=== PATIENT | female | born 1940 | race Caucasian/White ===

== ENCOUNTER → 2016-10-22 | Outpatient (CLI) | payer MEDICARE ==
[~2016-10-22] MED LIST: AMLODIPINE BESY10 MG PO; APRESOLINE PO; ASPIRIN ENTERI325 M1 PO; ASPIRIN PO; ASPIRIN81 MG PO; AVALIDE 300-12.1 TAB PO; AVANDIA PO; B COMPLEX-VITA1 EACH PO; B COMPLEX1 CA1 PO; BENICAR PO; BENZONATATE200 M1 PO; BYSTOLIC10 MG PO; CADUET 10 MG/401 TAB PO; CENTRUM ULTRA1 EACH PO; CENTRUM240 ML PO; CIPRO250 M1 PO; CLOPIDOGREL BIS75 MG PO; CLOPIDOGREL75 MG PO; COREG3.125 M1 PO; COZAAR25 MG PO; CRESTOR10 MG PO; DETROL LA; DETROL LA PO; DETROL PO; DOC-Q-LACE100 MG PO; ECOTRIN325 MG PO; ELIQUIS2.5 MG PO; FLEXTRA CAPSULE1 CAP; FLUOXETINE HCL20 M1 PO; FUROSEMIDE40 MG PO; GABAPENTIN400 M2 PO; GABAPENTIN600 MG PO; GLUCOTROL XL PO; HYDRALAZINE HC100 MG PO; HYDRALAZINE HCL25 MG PO; HYDROCODON-ACE1 EAC7 PO; IMDUR PO; IMDUR-ER60 M1 PO; IMDUR-ER60 MG PO; ISOSORBIDE MONO60 M1 PO; JANUVIA PO; JANUVIA100 MG PO; KCL PO; KLOR-CON PO; LASIX PO; LASIX20 MG PO; LEVOFLOXACIN500 MG PO; LIPITOR20 MG PO; MEDROL DOSEPAK4 MG PO; MULTIPLE VITAMI1 T11 PO; NABUMETONE PO; NEURONTIN300 MG PO; NEXIUM PO; PAIN & FEVER325 MG PO; PERCOCET; PERCOCET5/325 PO; PLAVIX PO; PROZAC PO; PROZAC10 MG PO; RANEXA500 MG PO; SARAFEM20 MG PO; SIMVASTATIN40 MG PO; TIMOPTIC5 ML OP; TOPROL XL; TRADJENTA5 MG PO; TRAVATAN5 ML OU; TRAVOPROST OU; TRICOR PO; TYLENOL EXTRA500 M1 PO; ULTRACET TABLET1 TAB; VALTURNA PO; VICODIN; VICODIN 5/500 T1 TAB; VITAMIN D PO; VOLTAREN75 MG PO; [UNRECOGNIZED DRUG - OTHER] PO
--- NOTE | ~2016-10-22 | CR97 ---
[facility] A Service of [facility] RADIOLOGY TEXT RESULTS PATIENT: VANDANA HERNÁNDEZ LOCATION: [facility] : [birth year] UNIT #: [id number] AGE: [address]: Hakan Gates MD SEX: F ORDER DR: [id number] [facility] [address]. [place], [place] [address] [id number] O MR#: [id number] Acc #: [id number] NAME: VANDANA HERNÁNDEZ : 1940 SEX: F STUDY DATE/TIME: 10/22/2016 11:04 UNIT: [facility] ROOM: STUDY DESCRIPTION: CR Esophagram Attending Physician: Hakan Gates M.D. Referring Physician: Hakan Gates M.D. Ordering Physician: Hakan Gates M.D. Primary Care Physician: Obinna Suresh M.D. MEDICAL IMAGING REPORT This report is preliminary unless electronic signature is present EXAM Esophagram, 10/22/2016 HISTORY Nausea and vomiting, history of bariatric surgery, question of device migration. PROCEDURE A total of 0.7 minutes of fluoroscopy were used, and a total of 6 spot images were obtained. FINDINGS The bariatric device is now 4-5 mm distal to the gastroesophageal junction. There is no leak, and there is ready flow of oral contrast through the device. IMPRESSION No leak, but the gastrostomy ring/bariatric device is about 4-5 cm distal to the gastroesophageal junction. Dictated by... Kevin Morales M.D. THIS IS AN ELECTRONICALLY VERIFIED REPORT Kevin Morales M.D. at 10/24/2016 11:48 AM LARA/sunni TD: 10/22/2016 21:56 JOB #: [id number] MEDICAL IMAGING REPORT [facility] A Service of [facility] RADIOLOGY TEXT RESULTS PATIENT: VANDANA HERNÁNDEZ [id number] : [birth year] UNIT #: [id number] AGE: [address]: Hakan Gates MD SEX: F ORDER DR: TOSHA
== END | disposition home or self-care (01) ==
LOC: CRAD 09:12
DX: R11.10 Vomiting, unspecified (principal); Z98.890 Other specified postprocedural states
CPT/HCPCS: 74220

== ENCOUNTER → 2016-10-30 | Outpatient (CLI) | payer MEDICARE ==
--- NOTE | ~2016-10-30 | EKG ---
PATIENT: VANDANA HERNÁNDEZ UNIT #: [id number] Ventricular Rate: 89 BPM Atrial Rate: 101 BPM QRS Duration: 102 ms Q-T Interval: 392 ms QTC Calculation(Bezet): 476 ms Calculated R Ball: 88 degrees Calculated T Ball: -6 degrees Diagnosis Line: Atrial fibrillation Diagnosis Line: Inferior infarct (cited on or before 30-OCT-2016) Diagnosis Line: Abnormal ECG Diagnosis Line: When compared with ECG of 24-APR-2016 14:00, Diagnosis Line: Previous ECG has undetermined rhythm, needs review Diagnosis Line: Nonspecific T wave abnormality now evident in Diagnosis Line: Inferior leads Diagnosis Line: Nonspecific T wave abnormality now evident in Diagnosis Line: Lateral leads Diagnosis Line: Confirmed by PATRICIA RILEY MD ([id number]) on Diagnosis Line: 10/31/2016 11:24:07 AM INTERPRETING MD: ROSEMARY CHAPIN
[2016-10-30 15:47] LABS: URINE APPEARANCE CLEAR; URINE BILIRUBIN NEG (NEG); URINE BLOOD NEG (NEG); URINE COLOR YELLOW; URINE GLUCOSE NEG (NEG); URINE KETONE NEG (NEG); URINE LEUKOCYTE ESTERASE 1+ (NEG); URINE NITRATE POS (NEG); URINE PH 5.5 (5-8); URINE PROTEIN 3+ (NEG); URINE SPECIFIC GRAVITY 1.019 (1.003-1.035); URINE UROBILINOGEN 0.2 MG/DL (NEG)
[2016-10-30 15:48] LABS: URINE SOURCE CLEAN CATCH
[2016-10-30 15:49] LABS: URBCS1 AUWI 0-2 /[HPF] (0-2); URINE BACTERIA AUWI 2+ (NEGATIVE); URINE SQUAMOUS EPITHELIAL CELL FEW /[HPF]
[2016-10-30 16:20] LABS: BUN/CREATININE RATIO 12.5; CALCIUM SERUM 9.5 mg/dL (8.4-10.2); CREATININE SERUM 1.6 mg/dL (0.6-1.4); GLOM FILT RATE Estimated 33.5 mL/min (>60); POTASSIUM 3.6 mmol/L (3.5-5.1)
== END | disposition home or self-care (01) ==
LOC: CAMB 13:18
PROVIDERS: Surgery
DX: Z01.818 Encounter for other preprocedural examination (principal); T85.598A Other mechanical complication of other gastrointestinal prosthetic devices, implants and grafts, initial encounter; R94.31 Abnormal electrocardiogram [ECG] [EKG]; I48.91 Unspecified atrial fibrillation; I21.19 ST elevation (STEMI) myocardial infarction involving other coronary artery of inferior wall
CPT/HCPCS: 36415; 80048; 81003; 93005

== ENCOUNTER → 2016-11-02 | Day surgery (SDC) | payer MEDICARE ==
--- NOTE | ~2016-11-02 | OR ---
Unit #: [id number] #: [id number] Patient: VANDANA HERNÁNDEZ [id number] [address] [place], [place] [address] [id number] O MR#: [id number] NAME: VANDANA HERNÁNDEZ ROOM: Date of Procedure: 11/02/2016 Admission Date: 11/02/2016 Surgeon: Hakan Gates M.D. : 1940 Attending Physician: Hakan Gates M.D. Primary Care Physician: Obinna Suresh M.D. 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 POSTOPERATIVE DIAGNOSIS Chronic gastric outlet obstruction secondary to lap band. PROCEDURES PERFORMED 1. Laparoscopic adjustable gastric band removal. 2. Laparoscopic adjustable gastric band port removal. ANESTHESIA General endotracheal anesthesia. ESTIMATED BLOOD LOSS Minimal. IV FLUIDS 800 crystalloid. COMPLICATIONS None. INDICATIONS FOR PROCEDURE The patient is an elderly lady, who has had a lap-band for quite sometime and it has been fairly well, who presents with persistent dysphagia. She also has had a history of a CVA. She presents for band removal. DESCRIPTION OF PROCEDURE The patient was taken to the operating theater and placed in a supine position. General anesthesia was induced. Her abdomen was prepped and draped. A 10-mm Visiport was placed in the left upper quadrant. The abdomen was insufflated to 15 mmHg with CO2. Under direct vision, I identified the lap-band. I saw no evidence of inflammation. Thus, we cut down on the lap band port site. The port was identified and removed from its connections to the fascia and then removed. I placed 10 mm port at this site and the right upper quadrant 5 mm port. Dominic liver retractor was also placed. I identified the band. There were adhesions that were taken down with Bovie electrocautery. I then cut the band and removed it. I saw no other abnormalities. The trocars were removed. The fascia was closed with 0 Vicryl and skin with 4-0 Vicryl. The patient tolerated the procedure well and sent to recovery room in good condition. Unit #: [id number] #: [id number] Patient: VANDANA HERNÁNDEZ Dictated by... Hakan Mykel Bennett TD: 11/03/2016 03:16 JOB #: [id number] OPERATIVE REPORT X Hakan Gates MD PROCEDURE OPERATIVE NOTE
[2016-11-02 06:58] LABS: URINE APPEARANCE CLEAR; URINE BILIRUBIN NEG (NEG); URINE BLOOD NEG (NEG); URINE COLOR YELLOW; URINE GLUCOSE NEG (NEG); URINE KETONE NEG (NEG); URINE LEUKOCYTE ESTERASE 1+ (NEG); URINE NITRATE NEG (NEG); URINE PROTEIN 3+ (NEG)
[2016-11-02 07:00] LABS: CULTURE INDICATED? YES; URBCS1 AUWI 0-2 /[HPF] (0-2); URINE BACTERIA AUWI 2+ (NEGATIVE); URINE SQUAMOUS EPITHELIAL CELL FEW /[HPF]
== END | disposition home or self-care (01) ==
LOC: CSUR 05:53
PROVIDERS: Surgery
DX: K95.09 Other complications of gastric band procedure (principal); I48.91 Unspecified atrial fibrillation; I10 Essential (primary) hypertension; E11.9 Type 2 diabetes mellitus without complications; E78.5 Hyperlipidemia, unspecified; I25.2 Old myocardial infarction; E66.9 Obesity, unspecified; Z95.5 Presence of coronary angioplasty implant and graft; Z85.828 Personal history of other malignant neoplasm of skin; Z95.1 Presence of aortocoronary bypass graft; Z90.710 Acquired absence of both cervix and uterus; Z98.49 Cataract extraction status, unspecified eye; Z95.0 Presence of cardiac pacemaker; Z82.49 Family history of ischemic heart disease and other diseases of the circulatory system; Z79.899 Other long term (current) drug therapy
CPT/HCPCS: 81003; 82947; 87086; 87186; J0330; J2370; J2710; J3010